=== PATIENT | female | born 1985 | race Caucasian/White ===

== ENCOUNTER 2018-11-25 07:36 | Emergency (ER) | payer OTHER ==
--- NOTE | 2018-11-25 08:15 | EDM.PDOC ---
ED HPI GENERAL MEDICAL PROBLEM - General Chief Complaint: Bite:Animal, Insect Stated Complaint: TICK BITE Time Seen by Provider: 11/25/18 08:15 Source of Information: Reports: Patient History Limitations: Reports: No Limitations - History of Present Illness INITIAL COMMENTS - FREE TEXT/NARRATIVE: pt had a deer tick on her lateral rt thigh. She removed but thinks there is a leg remaining attached. Onset: Today Duration: Hour(s): Location: Reports: Lower Extremity, Right Associated Symptoms: Reports: No Other Symptoms Right Upper Leg Pain Score (Numeric/FACES): 3 - Related Data Allergies Allergy/AdvReac Type Severity Reaction Status Date / Time No Known Allergies Allergy Verified 11/25/18 07:51 Home Meds: Home Meds Norgestimate-Ethinyl Estradiol [[place] 28 Tablet] 1 tab PO DAILY 11/25/18 [ History] Social & Family History - Tobacco Use Smoking Status *Q: Never Smoker Second Hand Smoke Exposure: No - Caffeine Use Caffeine Use: Reports: Coffee - Recreational Drug Use Recreational Drug Use: No ED ROS GENERAL - Review of Systems Review Of Systems: See Below Constitutional: Reports: No Symptoms HEENT: Reports: No Symptoms Respiratory: Reports: No Symptoms Cardiovascular: Reports: No Symptoms Endocrine: Reports: No Symptoms GI/Abdominal: Reports: No Symptoms : Reports: No Symptoms Musculoskeletal: Reports: Other (pt has a deer tick on her rt lateral thigh. ) ED EXAM, ANIMAL BITE - Physical Exam Exam: See Below Text/Narrative:: pt arrived with a history of removing a deer tick from her rt lateral thigh. She brought the tick with and it is a female deer tick. There is still some of the tick remaining at the site. Exam Limited By: No Limitations General Appearance: Alert, Anxious Extremities: Other ( There is a bite where a deer tick was removed from the rt lateral thigh. A [piece of it remains. This was removed without difficulty with a sliver forceps. ) Course - Vital Signs Last Recorded V/S: Last Vital Signs Temp 35.8 C 11/25/18 08:01 Pulse 87 11/25/18 08:01 Resp 21 H 11/25/18 08:01 BP 147/101 H 11/25/18 08:01 Pulse Ox 97 11/25/18 08:01 Departure - Departure Time of Disposition: 08:15 Disposition: Home, Self-Care 01 Condition: Fair Clinical Impression: Dermacentor andersoni tick bite - Discharge Information Referrals: Keyla Ryder [employer] [Primary Care Provider] - Forms: ED Department Discharge Care Plan Goals: bacatracin to tick bite, doxycyline 100mg bid for 3 days.
== END 2018-11-25 08:22 | disposition home or self-care (01) ==
LOC: JP.ED 07:36
DX: S70.361A Insect bite (nonvenomous), right thigh, initial encounter (principal); Z79.899 Other long term (current) drug therapy; W57.XXXA Bitten or stung by nonvenomous insect and other nonvenomous arthropods, initial encounter
CPT/HCPCS: 99282

== ENCOUNTER 2023-11-26 13:12 | Emergency (ER) | payer BC, OTHER | END 2023-11-26 15:13 | LOC: JP.ED 13:12 | DX: M79.89 Other specified soft tissue disorders (principal); I10 Essential (primary) hypertension; E11.9 Type 2 diabetes mellitus without complications; Z79.899 Other long term (current) drug therapy | CPT/HCPCS: 99284 ==